=== PATIENT | female | born 1965 | race African-American/Black ===

== ENCOUNTER 2018-04-09 11:54 | Emergency (ER) | payer OTHER ==
[2018-04-09] MEDS ORDERED: Nitroglycerin 0.4 MG TAB (25 Tab Bottle) ONE (12:13)
[2018-04-09 12:45] LABS: ALT (SGPT) 8 U/L (8-55); AST (SGOT) 12 U/L (5-34); Albumin 3.8 g/dL (3.5-5.0); Alkaline Phosphatase 95 U/L (40-150); Anion Gap 9 mmol/L (10-20); BUN (Urea Nitrogen) 9 mg/dL (9.8-20.1); Bilirubin, Total 0.4 mg/dL (0.2-1.2); Calc. Creatinine Clearance 0 mL/min (70-130); Calcium 9.6 mg/dL (7.8-10.44); Carbon Dioxide 25 mmol/L (22-29); Chloride 107 mmol/L (98-107); Estimated GFR-MDRD 74; Globulin 3.1 g/dL (2.4-3.5); Glucose 98 mg/dL (70-105); Protein, Total 6.9 g/dL (6.0-8.3); Sodium 137 mmol/L (136-145)
[2018-04-09 12:50] LABS: CKMB 2.3 ng/mL (0-6.6); Troponin I Less than 0.010 ng/mL (< 0.028)
[2018-04-09 12:51] LABS: Band 2 % (5-11); Hemoglobin 11.1 g/dL (12.0-16.0); Lymphocytes 58 % (21-51); MDiff Complete? YES; Mean Corpuscular HGB CONC 32.8 g/dL (32.0-36.0); Mean Corpuscular Hemoglobin 27.7 pg (27.0-31.0); Mean Corpuscular Volume 84.3 fL (78.0-98.0); Mean Platelet Volume 6.4 fL (7.4-10.4); Monocytes 13 % (0-10); Neutrophil 27 % (42-75); Platelet Count 296 thou/uL (130-400); RBC Distribution Width 15.8 % (11.5-14.5); White Blood Cell (WBC) Count 3.4 thou/uL (4.8-10.8)
--- NOTE | 2018-04-09 13:38 | RAD ---
AP VIEW CHEST: Date: 04/09/18 INDICATION: Chest pain. COMPARISON: None. FINDINGS: No consolidation, pleural effusion, or pneumothorax evident. Heart size is normal appearing. No acute osseous abnormality is evident. IMPRESSION: No acute cardiopulmonary abnormality. POS: [facility]
[2018-04-09 14:51] LABS: Troponin I Less than 0.010 ng/mL (< 0.028)
== END 2018-04-09 15:20 ==
LOC: ERS 11:54
DX: R07.9 Chest pain, unspecified (principal); E11.9 Type 2 diabetes mellitus without complications; I10 Essential (primary) hypertension; F32.9 Major depressive disorder, single episode, unspecified; Z79.899 Other long term (current) drug therapy; Z79.84 Long term (current) use of oral hypoglycemic drugs; Z79.82 Long term (current) use of aspirin
CPT/HCPCS: 36415; 36416; 71045; 80053; 82553; 84484; 85025; 93005

== ENCOUNTER 2018-04-14 10:00 | Inpatient (IN) | payer OTHER ==
[2018-04-14 10:25] LABS: #Lymphocytes 0.3 thou/uL (1.20-3.40); #Monocytes 0.4 thou/uL (0.11-0.59); #Neutrophils 2.5 thou/uL (1.40-6.50); %Eosinophils 1.2 % (0.0-10.0); %Lymphocytes 10.5 % (21.0-51.0); %Monocytes 12.3 % (0.0-10.0); %Neutrophils 76.1 % (42.0-75.0); Hemoglobin 10.1 g/dL (12.0-16.0); Mean Corpuscular HGB CONC 33.2 g/dL (32.0-36.0); Mean Corpuscular Hemoglobin 28.2 pg (27.0-31.0); Mean Corpuscular Volume 85.1 fL (78.0-98.0); Mean Platelet Volume 6.7 fL (7.4-10.4); Platelet Count 201 thou/uL (130-400); Red Blood Cell (RBC) Count 3.59 mill/uL (4.20-5.40); White Blood Cell (WBC) Count 3.2 thou/uL (4.8-10.8)
--- NOTE | 2018-04-14 10:41 | RAD ---
FRONTAL VIEW CHEST: COMPARISON: 04/09/18. INDICATION: Chest pain. FINDINGS: There is a patchy density of the lateral right mid to lower lung zone. Mild bibasilar patchy opaciti es are present. The cardiomediastinal silhouette is accentuated by portable technique. IMPRESSION: Patchy density overlies the lateral right mid to lower lung zone. This is superimposed upon extrinsi c artifact from catheter tubing. Further evaluation with followup 2-view chest would prove useful fo r reassessment. CODE T POS: [facility]
[2018-04-14 10:50] LABS: ALT (SGPT) 10 U/L (8-55); AST (SGOT) 15 U/L (5-34); Albumin 3.6 g/dL (3.5-5.0); Alkaline Phosphatase 81 U/L (40-150); Anion Gap 7 mmol/L (10-20); BUN (Urea Nitrogen) 14 mg/dL (9.8-20.1); Bilirubin, Total 0.5 mg/dL (0.2-1.2); Calc. Creatinine Clearance 0 mL/min (70-130); Calcium 8.4 mg/dL (7.8-10.44); Carbon Dioxide 27 mmol/L (22-29); Chloride 107 mmol/L (98-107); Estimated GFR-MDRD 89; Globulin 2.9 g/dL (2.4-3.5); Glucose 112 mg/dL (70-105); Potassium 3.7 mmol/L (3.5-5.1); Protein, Total 6.5 g/dL (6.0-8.3); Sodium 137 mmol/L (136-145)
[2018-04-14 10:56] LABS: CKMB 1.8 ng/mL (0-6.6); Troponin I Less than 0.010 ng/mL (< 0.028)
[2018-04-14] MEDS ORDERED: Nitroglycerin 0.4 MG TAB (25 Tab Bottle) PO PRN (13:12)
[2018-04-14] MEDS ORDERED: Ondansetron HCl/PF 4 MG/2 ML Vial IVP PRN (13:12)
[2018-04-14] MEDS ORDERED: Acetaminophen 650 MG Suppository PR PRN (13:12)
[2018-04-14] MEDS ORDERED: HYDROcodone/Acetaminophen 5/325 mg Tablet PO PRN (13:12)
[2018-04-14 13:22] VITALS: BMI 29.5
[2018-04-14 13:55] LABS: Troponin I Less than 0.010 ng/mL (< 0.028)
[2018-04-14] MEDS ORDERED: HumaLOG 300 UNITS/3 ML VIAL SC PRN ×2 (15:58)
[2018-04-14] MEDS ORDERED: Dextrose 50% Abboject 50 ML SYRINGE SLOW IVP PRN (15:58)
[2018-04-14] MEDS ORDERED: Dextrose 5% in Water 1,000 ML IV PRN (15:58)
--- NOTE | 2018-04-14 17:15 | HP ---
DATE OF ADMISSION: 04/14/2018 CHIEF COMPLAINT: Chest pain. HISTORY OF PRESENT ILLNESS: This is a 52-year-old -[place] female, who is a resident of [facility] at this time. She has been coming to the hospital regularly with persistent chest pains, last visit was last Tuesday. When she came to the ER, had serial troponins was negative and the patient was a symptomatic. The patient was discharged back to [facility]. Patient returns back today as this morning wh en she woke up, she felt sudden onset of chest pain and the left precordium was radiating to the neck to the both sides and was persistent pain of burning type lasted more than an hour, so she showed to her medical orderly at the [facility], who advised the patient to go to the ER for further thorough evalu ation. The patient presented to the ER, had a EKG was unremarkable. Serial troponins were negative x1 and the patient was having no chest pains currently. She denies having any nausea, no vomiting, n o diarrhea. She does have a strong family history of coronary artery disease. Her mother and the gr andmother dying at the age of 60s. She is a former smoker, otherwise. She denies having any other k nown medical issues except for diabetes, which according to her is well controlled on metformin. PAST MEDICAL HISTORY: 1. Type 2 diabetes mellitus. 2. Hypertension. PAST SURGICAL HISTORY: No major surgeries. SOCIAL HISTORY: The patient is a former smoker, quit smoking more than 2 years ago. No history of a lcohol, no history of illicit drug use. FAMILY HISTORY: Significant for congestive heart failure and premature deaths in the family at age o f 60. Her mother of CT, but was diagnosed with heart failure much younger age. ALLERGIES: No known drug allergies. HOME MEDICATIONS: 1. Omeprazole 20 mg p.o. daily. 2. Amlodipine 10 mg p.o. daily. 3. Aspirin 81 mg p.o. daily. 4. Metformin 500 mg p.o. daily. REVIEW OF SYSTEMS: All twelve systems reviewed with the patient thoroughly and found to be negative at this time. The following complete review of systems was negative, unless otherwise mentioned in t he HPI or below: Constitutional: Weight loss or gain, sense of well-being, ability to conduct usual activities, exerc ise tolerance. Skin/Breast: Rash, itching, changes in hair growth or loss, nail changes, breast lumps, tenderness, swelling, nipple discharge. Eyes: Vision, double vision, tearing, blind spots, pain. ENT/Mouth: Headaches (location, time of onset, duration, precipitating factors), vertigo, lightheade dness, injury. Vision, double vision, tearing, blind spots, pain, nose bleeding, colds, obstruction, discharge, dental difficulties, gingival bleeding, dentures, neck stiffness, pain, tenderness, masses in thyroid or other areas Cardiovascular: Precordial pain, substernal distress, palpitations, syncope, dyspnea on exertion, or thopnea, nocturnal paroxysmal dyspnea, edema, cyanosis, hypertension, heart murmurs, varicosities, ph lebitis, claudication. Respiratory: Pain, shortness of breath, wheezing, stridor, cough, hemoptysis, fever or night sweats. Gastrointestinal: Poor appetite, dysphagia, indigestion, abdominal pain, heartburn, eructation, naus ea, vomiting, hematemesis, jaundice, constipation, or diarrhea, abnormal stools (jasper-colored, tarry, bloody, greasy, foul smelling), flatulence, hemorrhoids, recent changes in bowel habits. Genitourinary: Urgency, frequency, dysuria, nocturia, hematuria, polyuria, oliguria, unusual (or noah nge in) color of urine, stones, hesitancy, change in size of stream, dribbling, acute retention or in continence, libido, potency. Musculoskeletal: Pain, swelling, redness or heat of muscles or joints, limitation, of motion, muscul ar weakness, atrophy, cramps. Neurologic/Psychiatric: Convulsions, paralyses, tremor, incoordination, parasthesias, difficulties w ith memory of speech, sensory or motor disturbances, or muscular coordination (ataxia, tremor), emoti onal problems, anxiety, depression, previous psychiatric care, unusual perceptions, hallucinations. Allergy/Immunologic: Skin rash, anemia, bleeding tendency, polydipsia, polyuria, intolerance to heat or cold. PHYSICAL EXAMINATION: VITAL SIGNS: Blood pressure 105/68, heart rate is 65, respiratory rate is 18, saturation 96%. GENERAL: The patient is moderately built and moderately nourished. She does not appear to be in acu te distress at this time. She is alert and oriented x3. HEENT: Atraumatic, normocephalic. PERRLA. Extraocular muscles are intact. Oral mucosa is pink and moist. CARDIOVASCULAR: S1 and S2 normal. No murmurs, rubs, or gallops. LUNGS: Bilateral air entry was equal. No wheezing, no crackles. ABDOMEN: Soft, nontender, no guarding, no rebound tenderness. Bowel sounds are normal. MUSCULOSKELETAL: No calf tenderness. No pedal edema. No joint tenderness, no joint swelling. SKIN: No cyanosis, no erythema, no rash, no pallor. ROUNDER HAND: Cranial nerve examination II-XII intact. No focal deficits were noted at this time. PSYCHIATRIC: No signs of suicidal ideation. No signs of kelvin was noted. LABORATORY DATA: WBC 3.2, hemoglobin is 10.1, hematocrit is 30.5, platelets are 201. Sodium is 137, potassium 3.7, chloride 107, bicarbonate 27, BUN is 14, creatinine 0.82, AST 15, ALT 10. Troponin 0 .010. Chest x-ray was done in the ER was showing an evidence of cardiomegaly and with patchy density overly ing the lateral right mid to lower lung zones. This is superimposed upon extrinsic artifact from bernard e catheter tubing. ASSESSMENT AND PLAN: 1. Acute coronary syndrome. 2. Gastroesophageal reflux disease. 3. Patchy opacities in the lung. 4. Type 2 diabetes mellitus. 5. Hypertension. PLAN: 1. Plan is to closely monitor this patient at this time with serial troponins, which were actually n egative. Plan to do a nuclear stress test in the morning. I will closely monitor the patient's ches t pains overnight. We will start the patient on aspirin, atorvastatin, and beta lucas. 2. The patient has enlarged heart on chest x-ray. We will do a 2D echo as family has a strong histo ry of congestive heart failure. 3. Plan to do a nuclear stress test in the morning if the troponins were negative. 4. Type 2 diabetes mellitus. We will hold the metformin at this time. We will start the patient on sliding scale insulin at this time for diabetes. 5. Hypertension is well controlled. The patient's blood pressures are pretty low at this time. We will continue to monitor and restart the patient's home medications if uncontrolled. 6. Deep venous thrombosis prophylaxis on Lovenox 40 mg subcu. I spent 75 minutes with this patient.
[2018-04-14] MEDS: Acetaminophen 325 MG TAB PO PRN (18:07)
[2018-04-14 19:42] LABS: CKMB 1.5 ng/mL (0-6.6); Troponin I Less than 0.010 ng/mL (< 0.028)
[2018-04-14] MEDS: Oxybutynin 5 MG TAB PO SCH (20:52)
[2018-04-14] MEDS: Famotidine/PF 20 mg/2ml Vial SLOW IVP SCH (20:52)
[2018-04-14] MEDS: Carvedilol 3.125 MG TAB PO SCH (20:52)
[2018-04-15 05:44] LABS: Anion Gap 10 mmol/L (10-20); BUN (Urea Nitrogen) 13 mg/dL (9.8-20.1); Calc. Creatinine Clearance 116 mL/min (70-130); Calcium 8.5 mg/dL (7.8-10.44); Carbon Dioxide 25 mmol/L (22-29); Cardiac Risk 3.6 (Less than 4.5); Chloride 110 mmol/L (98-107); Cholesterol 146 mg/dl (< 200 Desired); Estimated GFR-MDRD 90; Glucose 98 mg/dL (70-105); HDL Cholesterol 41 mg/dL (>60 Neg Risk); LDL Cholesterol, Calculated 92 mg/dL; Potassium 4.2 mmol/L (3.5-5.1); Sodium 141 mmol/L (136-145); Triglycerides 64 mg/dL (Less than 150)
[2018-04-15 06:06] LABS: MDiff Complete? YES; Mean Corpuscular HGB CONC 32.3 g/dL (32.0-36.0); Mean Corpuscular Hemoglobin 27.7 pg (27.0-31.0); Mean Corpuscular Volume 85.7 fL (78.0-98.0); Mean Platelet Volume 7.1 fL (7.4-10.4); Platelet Count 200 thou/uL (130-400); RBC Distribution Width 16.1 % (11.5-14.5); Red Blood Cell (RBC) Count 3.63 mill/uL (4.20-5.40)
[2018-04-15 06:07] LABS: Band 7 % (5-11); Eosinophils 4 % (0-10); Lymphocytes 45 % (21-51); Monocytes 22 % (0-10); Neutrophil 22 % (42-75); PLT Morphology Comment Appears Adequate; RBC Morphology Normal
[2018-04-15] MEDS ORDERED: Non-Formulary Item 1 EACH (Ferrous Sulfate [Iron] 325 MG) PO SCH (09:00)
[2018-04-15] MEDS: Docusate 100 MG CAP PO SCH (13:16)
[2018-04-15] MEDS: Potassium Chloride 10 MEQ TAB PO SCH (13:17)
[2018-04-15] MEDS: Atorvastatin Calcium 10 MG TAB PO SCH (13:17)
[2018-04-15] MEDS: Aspirin 325 MG TAB PO SCH (13:17)
[2018-04-15] MEDS: Furosemide 40 MG TAB PO SCH (13:17)
[2018-04-15] MEDS: Ferrous Sulfate 325 MG TAB PO SCH (13:17)
[2018-04-15] MEDS: Enoxaparin Sodium 40 MG/0.4 ML SYRINGE SC SCH (13:20)
[2018-04-15] MEDS ORDERED: ADENOSINE 60 MG/20 ML VIAL ONE (13:56)
[2018-04-15] MEDS: Oxybutynin 5 MG TAB PO SCH ×2 (14:00→20:41)
[2018-04-15] MEDS: Famotidine/PF 20 mg/2ml Vial SLOW IVP SCH ×2 (14:00→20:45)
[2018-04-15] MEDS: Carvedilol 3.125 MG TAB PO SCH ×2 (14:00→20:41)
--- NOTE | 2018-04-15 14:15 | NM ---
NUCLEAR MEDICINE MYOCARDIAL PERFUSION SCAN: DATE: 04/15/18. COMPARISON: None. HISTORY: Diabetes, family history of CAD, high blood pressure, and chest pain. TECHNIQUE: SPECT imaging of the left ventricular myocardium obtained during rest and stress following the intrav enous administration of 9.0 and 30.0 mCi Technetium 99m labeled sestamibi. FINDINGS: There is a small defect seen on SPECT imaging at the level of the cardiac apex as well as the distal aspect of the septum which is partially reversible. TID is 0.92. EDV is 118 mL, ESV is 49 mL, and l eft ventricular ejection fraction is calculated at 64%. Left ventricular wall motion appears normal. IMPRESSION: There is a small cardiac perfusion defect at the level of the cardiac apex and the distal septum whic h is partially reversible. POS: [facility]
--- NOTE | 2018-04-15 16:49 | PDOC.PN ---
- Subjective Encounter Start Date: 04/15/18 Encounter Start Time: 14:00 Patient is seen today, alert and oriented. No other concern noted. PT had a positive Stress test with reversib;le defect. pt does have on and off chest pains. - Objective Resuscitation Status: Resuscitation Status FULL:Full Resuscitation MAR Reviewed: Yes Vital Signs & Weight: Vital Signs (12 hours) Temp Pulse Resp BP BP Pulse Ox 04/15/18 11:45 98.0 F 59 L 20 113/62 96 04/15/18 08:17 98.4 F 49 L 16 04/15/18 07:19 98.4 F 49 L 16 114/58 L 94 L 04/15/18 05:24 94 L 04/15/18 05:23 97.6 F 56 L 16 102/52 L 94 L Weight Weight 200 lb I&O: 04/14/18 04/15/18 04/16/18 06:59 06:59 06:59 Intake Total 840 Balance 840 Result Diagrams: 04/15/18 04:19 04/15/18 04:19 Radiology Reviewed by me: Yes Phys Exam - Physical Examination HEENT: PERRLA, moist MMs Neck: no nodes, no JVD Respiratory: no wheezing, no rales Cardiovascular: RRR, no significant murmur Gastrointestinal: soft, non-tender Musculoskeletal: no edema, pulses present Dx/Plan (1) ACS (acute coronary syndrome) Code(s): I24.9 - ACUTE ISCHEMIC HEART DISEASE, UNSPECIFIED Status: Acute Comment: Contoinue Aspirin/ BB, Pt chest xray shpows opasities with no evidence of pneumonia, may do CT to further evalaute. Abnormal Stress test, Consulted [facility]. (2) GERD (gastroesophageal reflux disease) Code(s): K21.9 - GASTRO-ESOPHAGEAL REFLUX DISEASE WITHOUT ESOPHAGITIS Status: Acute Qualifiers: Esophagitis presence: with esophagitis Qualified Code(s): K21.0 - Gastro- esophageal reflux disease with esophagitis Comment: Continue with PPI. (3) HTN (hypertension) Code(s): I10 - ESSENTIAL (PRIMARY) HYPERTENSION Status: Acute Comment: Stbale, continue to monitor. (4) DM type 2 (diabetes mellitus, type 2) Status: Acute Comment: Hold metformin, possible cath tomorrow - Plan cont current plan of care, elementary school social worker, out of bed/ambulate, DVT proph w/ lovenox * . Review of Systems - Review of Systems Eyes: negative: Pain, Vision Change, Conjunctivae Inflammation, Eyelid Inflammation, Redness, Other ENT: negative: Ear Pain, Ear Discharge, Nose Pain, Nose Discharge, Nose Congestion, Mouth Pain, Mouth Swelling, Throat Pain, Throat Swelling, Other Respiratory: negative: Cough, Dry, Shortness of Breath, Hemoptysis, SOB with Excertion, Pleuritic Pain, Sputum, Wheezing Cardiovascular: chest pain. negative: palpitations, orthopnea, paroxysmal nocturnal dyspnea, edema, light headedness, other Gastrointestinal: negative: Nausea, Vomiting, Abdominal Pain, Diarrhea, Constipation, Melena, Hematochezia, Other Genitourinary: negative: Dysuria, Frequency, Incontinence, Hematuria, Retention , Other Musculoskeletal: negative: Neck Pain, Shoulder Pain, Arm Pain, Back Pain, Hand Pain, Leg Pain, Foot Pain, Other - Medications/Allergies Allergies/Adverse Reactions: Allergies Allergy/AdvReac Type Severity Reaction Status Date / Time No Known Allergies Allergy Unverified 04/14/18 13:08 Medications: Current Medications Acetaminophen (Tylenol) 650 mg AR Q4H PRN PRN Reason: Headache/Fever or Pain Acetaminophen (Tylenol) 650 mg PO Q6H PRN PRN Reason: Headache/Fever or Pain Last Admin: 04/14/18 18:07 Dose: 650 mg Hydrocodone Bitart/Acetaminophen (Maxatawny 5/325) 2 tab PO Q4H PRN PRN Reason: Severe Pain (7-10) Aspirin (Aspirin) 325 mg PO DAILY [facility] Last Admin: 04/15/18 13:17 Dose: 325 mg Atorvastatin Calcium (Lipitor) 10 mg PO DAILY [facility] Last Admin: 04/15/18 13:17 Dose: 10 mg Carvedilol (Coreg) 3.125 mg PO BID [facility] Last Admin: 04/15/18 14:00 Dose: Not Given Dextrose/Water (Dextrose 50%) 25 gm SLOW IVP PRN PRN PRN Reason: Hypoglycemia Docusate Sodium (Colace) 100 mg PO DAILY [facility] Last Admin: 04/15/18 13:16 Dose: 100 mg Enoxaparin Sodium (Lovenox) 40 mg SC 0900 [facility] Last Admin: 04/15/18 13:20 Dose: 40 mg Famotidine (Pepcid) 20 mg SLOW IVP Q12HR [facility] Last Admin: 04/15/18 14:00 Dose: Not Given Ferrous Sulfate (Feosol) 325 mg PO DAILY [facility] Last Admin: 04/15/18 13:17 Dose: 325 mg Furosemide (Lasix) 40 mg PO DAILY [facility] Last Admin: 04/15/18 13:17 Dose: 40 mg Glucagon (Glucagon) 1 mg IM PRN PRN PRN Reason: Hypoglycemia Dextrose/Water (D5w) 1,000 mls @ 0 mls/hr IV .Q0M PRN PRN Reason: Hypoglycemia Insulin Human Lispro (Humalog) 0 units SC .MODERATE SLIDING SC PRN PRN Reason: Moderate Correctional Scale Insulin Human Lispro (Humalog) 0 units SC .BEDTIME SLIDING SC PRN PRN Reason: Bedtime Correctional Scale Nitroglycerin (Nitrostat) 0.4 mg PO Q5MIN PRN PRN Reason: Chest Pain Ondansetron HCl (Zofran) 4 mg IVP Q6H PRN PRN Reason: Nausea/Vomiting Oxybutynin Chloride (Ditropan) 5 mg PO BID [facility] Last Admin: 04/15/18 14:00 Dose: Not Given Pantoprazole Sodium (Protonix) 40 mg PO DAILY [facility] Last Admin: 04/15/18 13:17 Dose: 40 mg Potassium Chloride (Klor-Con 10) 10 meq PO DAILY [facility] Last Admin: 04/15/18 13:17 Dose: 10 meq Sodium Chloride (Flush - Normal Saline) 10 ml IVF Q12HR [facility] Last Admin: 04/15/18 14:01 Dose: Not Given Sodium Chloride (Flush - Normal Saline) 10 ml IVF PRN PRN PRN Reason: Saline Flush
--- NOTE | 2018-04-15 19:44 | CON ---
DATE OF CONSULTATION: 04/15/2018 ROOM NUMBER: [id number] PRIMARY CARE PHYSICIAN: Provided information PRIMARY ADOLESCENT MEDICINE SPECIALIST: Dr. Kalie Harris REFERRING DOCTOR: Dr. Peterson. REASON FOR CARDIOLOGY CONSULTATION: Abnormal stress test. HISTORY OF PRESENT ILLNESS: Mr. Osei is a 52-year-old female with a significant history of type 2 diabetes, hypertension, hyperlipidemia, GERD, and chronic anemia. Currently, mahamed goldsmith is a resident of the senior care at this moment. First of all, she came to emergency department last we k, almost one week ago, for heaviness, discomfort in his mid sternal area which radiated to the back and to the left shoulder and to the bilateral neck. At that time, the patient's cardiac enzymes were negative and no EKG change. The patient was discharged the same day. Until this morning, the mahamed goldsmith was doing well without any cardiac complaints, but this morning about 5 minutes, she started havin g heaviness in the chest with similar symptoms one week ago, but worse than last time. The patient a dministered one tablet of nitroglycerin. Within 3-4 minutes, she started feeling dizziness, but not released from chest discomfort with nitroglycerin, so she called guard in the senior care and she was transf erred to emergency department for further evaluation and treatment and she underwent stress test bonita aaron Nuclear stress test today which shows a small deficit at the level of the cardiac apex on the dis adela septum which is partially reversible with EF of 64%. The patient had echocardiogram done today a nd the result is pending at this moment. The patient's cardiac enzyme series is all negative and the patient's 12-lead EKG at the ER showing normal sinus rhythm with no ST segment change or T-wave inve rsion and the patient reports that she was told that she has a cardiac arrhythmia by her primary care doctors. However, she was never referred to self storage manager before. The patient had a chest x-ray tod anuradha showing patchy density overly at the lateral right and mid to lower lung zones. Patient has signi ficant family history of coronary artery disease. PAST MEDICAL HISTORY: 1. Type 2 diabetes. 2. Hypertension. 3. Hyperlipidemia. 4. GERD. 5. Anemia. 6. The patient had a chronic back and hip pain. PAST SURGICAL HISTORY: Tubal ligation, right hip and back fracture in 2009. FAMILY HISTORY: Significant for coronary artery disease and congestive heart failure in the maternal side. The patient's mother and the patient's maternal grandmother due to cardiac related d isease at the age of 62 and both mother and the paternal side grandmother had a history of diabetes, hypertension, congestive heart failure. The patient's brother, he has a medical history of insulin-d ependent diabetes. The patient's father had a history of hypertension. SOCIAL HISTORY: She is single. She had a children. They live well. She is a former smoker, quit 1 -1/2 year ago. She drinks alcohol. She is a social drinker. She had a history of illicit drug abus e, especially heroin, cocaine and marijuana. ALLERGIES: She has no known drug allergies. HOME MEDICATIONS: Atorvastatin 10 mg once a day, amlodipine 10 mg once a day, ferrous sulfate 325 mg once a day, oxybutynin 5 mg twice a day, omeprazole 20 mg once a day, Colace 100 mg once a day, pota ssium chloride 10 mEq once a day, Lasix 40 mg once a day, metformin 500 twice a day, aspirin 81 mg on ce a day. REVIEW OF SYSTEMS: A 12-point review of systems was negative, unless otherwise mentioned in the HPI or below. The patient has a chronic complaint of constipation, but denies hematuria, has blood in th e stool or urine or hemoptysis. PHYSICAL EXAMINATION: VITAL SIGNS: Blood pressure 113/62, heart rate 60 to 70s, temperature 98.0, respiratory rate 20, O2 sat 96% with room air. GENERAL: Patient is alert, oriented x4, not in acute distress. HEAD/EYES: Atraumatic, normocephalic. Extraocular muscle movement is intact. ENT: Oral and nasal mucosa are moist without lesion. NECK: JVP is not palpable. Normal range of motion. LUNGS: Clear to auscultate bilaterally. No wheezing, rhonchi, or crackle noted. CARDIOVASCULAR: Regular rhythm and rate. Normal S1, S2, no S3 or S4. No significant murmur, hives, thrill noted. ABDOMEN: Soft, nontender or mass to palpate. Positive bowel sounds. MUSCULOSKELETAL: Patient able to move all extremities. Denies any claudication. VASCULAR: Carotid pulses are present without bruit or thrill. They have 2+ pulses in the bilateral lower extremities. No edema. SKIN: No cyanosis or ischemia. No rash. Bruise lesion noted. PSYCHIATRIC: No focal deficit. Alert, oriented x4. LABORATORY DATA: WBC 2.0, hemoglobin 10.0, hematocrit 31.1, platelet 200. Sodium 141, potassium of 4.2, BUN 13, creatinine 0.81, AST 15, ALT 10, CK-MB 1.8, 1.5, troponin negative x3. Total cholestero l 146, triglyceride 64, HDL 41 and LDL 92. A 12-lead EKG in the ER shows normal sinus rhythm with he art rate in the 70s with no significant ST segment change or T-wave inversion. ASSESSMENT AND PLAN: 1. Abnormal nuclear stress test with small deficit at the level of the cardiac apex and distal septu m which is . I would like to discuss with Dr. Harris about patient's condition; however, possibil ity patient will undergo cardiac catheterization coming Tuesday due to recurrent chest pain, significa nt medical history of hypertension, hyperlipidemia, illicit drug abuse, especially cocaine and heroin abuse and strong family history of coronary artery disease. 2. Hypertension. The patient's blood pressure is stable at this moment, we would like to continue t o monitor. 3. Diabetes type 2, which is managed by primary care doctor. 4. Gastroesophageal reflux disease. At this moment, the patient's condition is stable. The patient denied any reflux or discomfort due to the throat or chest or stomach with food. 5. Chronic anemia. The patient level is stable at this moment; however, due to the anemia. If michael ent's hemoglobin going down to less than 10, patient cannot have a cardiac catheterization. 6. Low WBC, possible neutropenia. The patient might need further evaluation of vice president network development. At th is moment, the patient does not have any signs or symptoms of infection. Thank you for Cardiology service to participate in the care of this patient. We will follow along wi th the patient's care team and make recommendation as appropriate.
[2018-04-15] MEDS: Acetaminophen 325 MG TAB PO PRN (20:41)
[2018-04-16] MEDS: Simethicone Chewable 80 MG TAB PO PRN (00:59)
[2018-04-16] MEDS: Potassium Chloride 10 MEQ TAB PO SCH (08:24)
[2018-04-16] MEDS: Docusate 100 MG CAP PO SCH (08:24)
[2018-04-16] MEDS: Furosemide 40 MG TAB PO SCH (08:24)
[2018-04-16] MEDS: Oxybutynin 5 MG TAB PO SCH ×2 (08:24→20:29)
[2018-04-16] MEDS: Ferrous Sulfate 325 MG TAB PO SCH (08:24)
[2018-04-16] MEDS: Carvedilol 3.125 MG TAB PO SCH ×2 (08:24→20:28)
[2018-04-16] MEDS: Atorvastatin Calcium 10 MG TAB PO SCH (08:25)
[2018-04-16] MEDS: Enoxaparin Sodium 40 MG/0.4 ML SYRINGE SC SCH (08:25)
[2018-04-16] MEDS: Aspirin 325 MG TAB PO SCH (08:25)
[2018-04-16] MEDS: Famotidine/PF 20 mg/2ml Vial SLOW IVP SCH ×2 (08:26→20:29)
--- NOTE | 2018-04-16 08:49 | PDOC.CTH ---
<Jovanna Reinoso - Last Filed: 04/16/18 08:47> Cardiology Progress Note - Subjective The pt seen and examined. No overnight events. No cardiac complaints. She voiced understanding the procedure and risk of LHC and agreed to proceed. - Objective Vital Signs Temp Pulse Resp BP BP Pulse Ox 04/16/18 07:06 98.4 F 60 20 119/58 L 100 04/16/18 04:14 97.9 F 65 16 109/65 113/56 L 94 L 04/15/18 22:50 59 L 16 139/70 95 Weight 201 lb 3.2 oz 04/15/18 04/16/18 04/17/18 06:59 06:59 06:59 Intake Total 840 800 Balance 840 800 - Physical Examination General/Neuro: alert & oriented x3 Neck: no JVD present Lungs: CTA Heart: RRR Abdomen: soft Extremities: other: (No edema) - Telemetry Telemetry Rhythm: SR - Labs Result Diagrams: 04/15/18 04:19 04/15/18 04:19 Troponin/CKMB CK-MB (CK-2) 1.5 ng/mL (0-6.6) 04/14/18 19:08 Troponin I Less than 0.010 ng/mL (< 0.028) 04/14/18 19:08 - Assessment/Plan 1. Abnormal stress test - No overnight cardiac events. On Bblocker, ASA, Statin and Lovenox. Cardiac cath on 04/16/18 2. HTN - stable with current med. 3. DM type 2 - managed by PCP 4. Hyperlipidemia - on Statin 5. GERD - stable MAR reviewed * Plan for Cardiac cath on 04/16/[address] Harris. Review of Systems - Review of Systems Constitutional: reports: no symptoms reported EENTM: reports: no symptoms reported Respiratory: reports: no symptoms reported Cardiac (ROS): reports: no symptoms reported ABD/GI: reports: no symptoms reported : reports: no symptoms reported Musculoskeletal: reports: no symptoms reported <Alexis Harris - Last Filed: 04/17/18 11:21> Cardiology Progress Note - Objective Vital Signs Temp Pulse Resp BP BP Pulse Ox 04/17/18 07:25 98.5 F 69 20 93 L 04/17/18 07:05 98.5 F 69 20 133/73 93 L 04/17/18 03:16 98.2 F 56 L 16 117/60 93 L 04/16/18 23:33 98.0 F 62 18 117/59 L 95 Weight 201 lb 4.8 oz 04/16/18 04/17/18 04/18/18 06:59 06:59 06:59 Intake Total 800 770 Balance 800 770 - Labs Result Diagrams: 04/15/18 04:19 04/15/18 04:19 Troponin/CKMB CK-MB (CK-2) 1.5 ng/mL (0-6.6) 04/14/18 19:08 Troponin I Less than 0.010 ng/mL (< 0.028) 04/14/18 19:08 - Assessment/Plan pt. seen and eval. by me. I agree with the A/P by the BAG SHAKER.Plan for cath in AM.
--- NOTE | 2018-04-16 10:38 | PDOC.PN ---
- Subjective Encounter Start Date: 04/16/18 Encounter Start Time: 07:50 -: old records requested/rev Patient seen and examined. No new complaints. No overnight events - Objective Resuscitation Status: Resuscitation Status FULL:Full Resuscitation MAR Reviewed: Yes Vital Signs & Weight: Vital Signs (12 hours) Temp Pulse Resp BP BP Pulse Ox 04/16/18 08:00 98.4 F 60 20 04/16/18 07:06 98.4 F 60 20 119/58 L 100 04/16/18 04:14 97.9 F 65 16 109/65 113/56 L 94 L 04/15/18 22:50 59 L 16 139/70 95 Weight Weight 201 lb 3.2 oz I&O: 04/15/18 04/16/18 04/17/18 06:59 06:59 06:59 Intake Total 840 800 240 Balance 840 800 240 Result Diagrams: 04/15/18 04:19 04/15/18 04:19 Additional Labs: Accuchecks 04/16/18 04:18 POC Glucose 109 Radiology Reviewed by me: Yes EKG Reviewed by me: Yes Phys Exam - Physical Examination Constitutional: NAD HEENT: PERRLA, moist MMs, sclera anicteric Neck: no JVD, supple Respiratory: no wheezing, no rales, no rhonchi Cardiovascular: RRR, no significant murmur, no rub Gastrointestinal: soft, non-tender, no distention, positive bowel sounds Musculoskeletal: no edema, pulses present Neurological: non-focal, normal sensation, moves all 4 limbs Psychiatric: normal affect, A&O x 3 Skin: no rash, normal turgor Dx/Plan (1) Abnormal stress test Status: Acute (2) Recurrent chest pain Code(s): R07.9 - CHEST PAIN, UNSPECIFIED Status: Acute (3) Anemia, normocytic normochromic Code(s): D64.9 - ANEMIA, UNSPECIFIED Status: Chronic (4) Chronic stage c diastolic heart failure Code(s): I50.32 - CHRONIC DIASTOLIC (CONGESTIVE) HEART FAILURE Status: Chronic (5) DM type 2 (diabetes mellitus, type 2) Status: Chronic Comment: Hold metformin, possible cath tomorrow (6) Dyslipidemia Code(s): E78.5 - HYPERLIPIDEMIA, UNSPECIFIED Status: Chronic (7) GERD (gastroesophageal reflux disease) Code(s): K21.9 - GASTRO-ESOPHAGEAL REFLUX DISEASE WITHOUT ESOPHAGITIS Status: Chronic Qualifiers: Esophagitis presence: with esophagitis Qualified Code(s): K21.0 - Gastro- esophageal reflux disease with esophagitis Comment: Continue with PPI. (8) HTN (hypertension) Code(s): I10 - ESSENTIAL (PRIMARY) HYPERTENSION Status: Chronic Comment: Stbale, continue to monitor. (9) Moderate aortic regurgitation Code(s): I35.1 - NONRHEUMATIC AORTIC (VALVE) INSUFFICIENCY Status: Chronic - Plan cont current plan of care * medication reviewed as below * symptomatic treatment * cardiac cath tomorrow. Review of Systems - Review of Systems Eyes: negative: Pain, Vision Change, Conjunctivae Inflammation, Eyelid Inflammation, Redness, Other ENT: negative: Ear Pain, Ear Discharge, Nose Pain, Nose Discharge, Nose Congestion, Mouth Pain, Mouth Swelling, Throat Pain, Throat Swelling, Other Respiratory: negative: Cough, Dry, Shortness of Breath, Hemoptysis, SOB with Excertion, Pleuritic Pain, Sputum, Wheezing Cardiovascular: negative: chest pain, palpitations, orthopnea, paroxysmal nocturnal dyspnea, edema, light headedness, other Gastrointestinal: negative: Nausea, Vomiting, Abdominal Pain, Diarrhea, Constipation, Melena, Hematochezia, Other Genitourinary: negative: Dysuria, Frequency, Incontinence, Hematuria, Retention , Other Musculoskeletal: negative: Neck Pain, Shoulder Pain, Arm Pain, Back Pain, Hand Pain, Leg Pain, Foot Pain, Other Skin: negative: Rash, Lesions, Balta, Bruising, Other - Medications/Allergies Allergies/Adverse Reactions: Allergies Allergy/AdvReac Type Severity Reaction Status Date / Time No Known Allergies Allergy Unverified 04/14/18 13:08 Medications: Current Medications Acetaminophen (Tylenol) 650 mg [place] Q4H PRN PRN Reason: Headache/Fever or Pain Acetaminophen (Tylenol) 650 mg PO Q6H PRN PRN Reason: Headache/Fever or Pain Last Admin: 04/15/18 20:41 Dose: 650 mg Hydrocodone Bitart/Acetaminophen ([place] 5/325) 2 tab PO Q4H PRN PRN Reason: Severe Pain (7-10) Last Admin: 04/15/18 23:04 Dose: 2 tab Aspirin (Aspirin) 325 mg PO DAILY [facility] Last Admin: 04/16/18 08:25 Dose: 325 mg Atorvastatin Calcium (Lipitor) 10 mg PO DAILY [facility] Last Admin: 04/16/18 08:25 Dose: 10 mg Carvedilol (Coreg) 3.125 mg PO BID [facility] Last Admin: 04/16/18 08:24 Dose: 3.125 mg Dextrose/Water (Dextrose 50%) 25 gm SLOW IVP PRN PRN PRN Reason: Hypoglycemia Docusate Sodium (Colace) 100 mg PO DAILY [facility] Last Admin: 04/16/18 08:24 Dose: 100 mg Enoxaparin Sodium (Lovenox) 40 mg SC 0900 [facility] Last Admin: 04/16/18 08:25 Dose: 40 mg Famotidine (Pepcid) 20 mg SLOW IVP Q12HR [facility] Last Admin: 04/16/18 08:26 Dose: 20 mg Ferrous Sulfate (Feosol) 325 mg PO DAILY [facility] Last Admin: 04/16/18 08:24 Dose: 325 mg Furosemide (Lasix) 40 mg PO DAILY [facility] Last Admin: 04/16/18 08:24 Dose: 40 mg Glucagon (Glucagon) 1 mg IM PRN PRN PRN Reason: Hypoglycemia Dextrose/Water (D5w) 1,000 mls @ 0 mls/hr IV .Q0M PRN PRN Reason: Hypoglycemia Insulin Human Lispro (Humalog) 0 units SC .MODERATE SLIDING SC PRN PRN Reason: Moderate Correctional Scale Insulin Human Lispro (Humalog) 0 units SC .BEDTIME SLIDING SC PRN PRN Reason: Bedtime Correctional Scale Nitroglycerin (Nitrostat) 0.4 mg PO Q5MIN PRN PRN Reason: Chest Pain Last Admin: 04/15/18 17:31 Dose: 0.4 mg Ondansetron HCl (Zofran) 4 mg IVP Q6H PRN PRN Reason: Nausea/Vomiting Oxybutynin Chloride (Ditropan) 5 mg PO BID [facility] Last Admin: 04/16/18 08:24 Dose: 5 mg Pantoprazole Sodium (Protonix) 40 mg PO DAILY [facility] Last Admin: 04/16/18 08:24 Dose: 40 mg Potassium Chloride (Klor-Con 10) 10 meq PO DAILY [facility] Last Admin: 04/16/18 08:24 Dose: 10 meq Simethicone (Mylicon Chewable) 80 mg PO DAILYPRN PRN PRN Reason: GAS/INDIGESTION Last Admin: 04/16/18 00:59 Dose: 80 mg Sodium Chloride (Flush - Normal Saline) 10 ml IVF Q12HR [facility] Last Admin: 04/16/18 08:27 Dose: 10 ml Sodium Chloride (Flush - Normal Saline) 10 ml IVF PRN PRN PRN Reason: Saline Flush
[2018-04-16] MEDS ORDERED: Communication Order-Pharmacy FS SCH (20:45)
[2018-04-17] MEDS: Oxybutynin 5 MG TAB PO SCH ×2 (05:11→20:38)
[2018-04-17] MEDS: Docusate 100 MG CAP PO SCH (05:11)
[2018-04-17] MEDS: Ferrous Sulfate 325 MG TAB PO SCH (05:11)
[2018-04-17] MEDS: Atorvastatin Calcium 10 MG TAB PO SCH (05:11)
[2018-04-17] MEDS: Carvedilol 3.125 MG TAB PO SCH ×2 (05:12→20:38)
[2018-04-17] MEDS: Famotidine/PF 20 mg/2ml Vial SLOW IVP SCH ×2 (05:12→20:38)
[2018-04-17] MEDS: Aspirin 325 MG TAB PO SCH (05:12)
--- NOTE | 2018-04-17 07:06 | ADD-CON ---
ADDENDUM: DATE OF CONSULTATION: 04/15/2018 DATE OF ADMISSION: 04/14/2018 INDICATION FOR CONSULTATION: A 52-year-old female with an abnormal stress test and history of chest pain and multiple hospital visits for chest pain, as well as hypertension, type 2 diabetes. This ivette y unfortunate 52-year-old female who is incarcerated at this time has been seen in the hospital on ro utine visits due to continued bouts of chest discomfort. Her enzymes have remained negative, but tod ay she had a stress test which did show some evidence of distal septal and apical reversible ischemia . This is not a very large area, but certainly may be what the etiology of her chest discomfort is a nd she certainly may have underlying coronary artery disease. This will be best to proceed with a ca rdiac catheterization on this lady to determine the true coronary anatomy and if she does have some c oronary artery disease and this can be addressed; if not, then we can dismiss these multiple admissio ns to the emergency room and observation. For her past medical history, social history, review of systems, medications, allergies, please refer the notes dictated by the nurse practitioner. PHYSICAL EXAMINATION: GENERAL: Reveals a well-developed, well-nourished female who is in no acute distress at this time. She did say she had some chest pain earlier, but she did not inform the nurses, there were no signifi cant changes otherwise noted. The pain did not last too long and then she did tell the nurse and she was given some nitroglycerin and the pain then resolved. VITAL SIGNS: Blood pressure 116/56. She is afebrile, heart rate 67 and shows a sinus rhythm, respir atory rate 14, O2 saturations 95%. HEENT: Unremarkable. CHEST: Clear to auscultation. There are no rales, rhonchi or wheezing. CARDIOVASCULAR: Exam reveals a regular rate and rhythm. She has a normal S1, S2. There is no S3, S 4. I did not hear any significant murmurs, heaves, thrills, bruits or rubs. ABDOMEN: Shows obesity with positive bowel sounds. No organomegaly, masses are noted. She has a we ll-healed surgical incision on the back area, a long incision after she apparently had a fall and had a fractured back. EXTREMITIES: Show no clubbing, cyanosis or edema. Pulses are present. NEUROLOGIC: She appears to be fully intact. SKIN: Warm and dry. Her cardiac enzymes are negative. There is no indication that she has suffered a myocardial infarcti on and blood sugar is also relatively normal at 98. Her creatinine is normal at 0.8. Her LDL level is also 92, which should be slightly lower since she is a diabetic. The plan would be: 1. Abnormal stress test with continued bouts of chest discomfort. We will plan for a cardiac cathet erization on Tuesday as a more definitive evaluation, so the patient hopefully will then be better jane luated and she may not need to come to the emergency room is often and be admitted to rule out eviden ce of coronary artery disease. Should she have issues as noted above, then she will need to undergo angioplasty, stent placement or further intervention as indicated by the findings at the cardiac cath eterization. I have explained the procedure and the risks to her to include bleeding, infection, pos sibly a myocardial infarction, CVA, renal insufficiency, allergic contrast reaction, and the possibil ity of . She understands and agrees to proceed. We will plan for cardiac catheterization eithe r Tuesday or Tuesday of next week. 2. Hypertension. She is under good control at this time. We will continue her same medications. 3. Hypercholesterolemia. As noted, I would increase the medications to have an LDL level of 70 sinc e she is diabetic. 4. History of diabetes. This was dealt with by the primary care service. 5. History of tobacco abuse in the past. She has not smoked in 5 years, but does smoke a pack a day for a long time.
[2018-04-17] MEDS ORDERED: Heparin 10,000 UNITS/1 ML VIAL ONE (08:57)
[2018-04-17] MEDS ORDERED: Verapamil 5 MG/2 ML VIAL ONE (08:57)
[2018-04-17] MEDS ORDERED: Nitroglycerin 100MG/250ML BOT 250 ML ONE (08:58)
[2018-04-17] MEDS ORDERED: Lidocaine 1% (PF) 30 ML VIAL ONE (08:58)
[2018-04-17] MEDS ORDERED: Midazolam HCl 2 mg/2 ml Vial ONE (09:30)
[2018-04-17] MEDS ORDERED: Sodium Chloride 0.9% 200 ML IV SCH (10:24)
[2018-04-17] MEDS ORDERED: Acetaminophen/Codeine 30-300mg Tablet PO PRN (10:24)
[2018-04-17] MEDS ORDERED: traMADol HCl 50 MG TAB PO PRN (10:24)
[2018-04-17] MEDS ORDERED: Nitroglycerin 0.4 MG TAB (25 Tab Bottle) SL PRN (10:24)
--- NOTE | 2018-04-17 11:47 | PDOC.PN ---
- Subjective Encounter Start Date: 04/17/18 Encounter Start Time: 07:50 Patient seen and examined. No new complaints. No overnight events - Objective Resuscitation Status: Resuscitation Status FULL:Full Resuscitation MAR Reviewed: Yes Vital Signs & Weight: Vital Signs (12 hours) Temp Pulse Resp BP Pulse Ox 04/17/18 07:25 98.5 F 69 20 93 L 04/17/18 07:05 98.5 F 69 20 133/73 93 L 04/17/18 03:16 98.2 F 56 L 16 117/60 93 L Weight Weight 201 lb 4.8 oz I&O: 04/16/18 04/17/18 04/18/18 06:59 06:59 06:59 Intake Total 800 770 Balance 800 770 Result Diagrams: 04/15/18 04:19 04/15/18 04:19 Additional Labs: Accuchecks 04/17/18 04/17/18 04/16/18 11:21 03:26 21:01 POC Glucose 90 102 133 H 04/16/18 04/16/18 04/15/18 16:36 11:27 21:35 POC Glucose 134 H 84 109 Phys Exam - Physical Examination Constitutional: NAD HEENT: PERRLA, moist MMs, sclera anicteric Neck: no JVD, supple Respiratory: no wheezing, no rales, no rhonchi Cardiovascular: RRR, no significant murmur, no rub Gastrointestinal: soft, non-tender, no distention, positive bowel sounds Musculoskeletal: no edema, pulses present Neurological: non-focal, normal sensation, moves all 4 limbs Lymphatic: no nodes Psychiatric: normal affect, A&O x 3 Skin: no rash, normal turgor Dx/Plan (1) Abnormal stress test Status: Acute (2) Recurrent chest pain Code(s): R07.9 - CHEST PAIN, UNSPECIFIED Status: Acute (3) Anemia, normocytic normochromic Code(s): D64.9 - ANEMIA, UNSPECIFIED Status: Chronic (4) Chronic stage c diastolic heart failure Code(s): I50.32 - CHRONIC DIASTOLIC (CONGESTIVE) HEART FAILURE Status: Chronic (5) DM type 2 (diabetes mellitus, type 2) Status: Chronic Comment: Hold metformin, possible cath tomorrow (6) Dyslipidemia Code(s): E78.5 - HYPERLIPIDEMIA, UNSPECIFIED Status: Chronic (7) GERD (gastroesophageal reflux disease) Code(s): K21.9 - GASTRO-ESOPHAGEAL REFLUX DISEASE WITHOUT ESOPHAGITIS Status: Chronic Qualifiers: Esophagitis presence: with esophagitis Qualified Code(s): K21.0 - Gastro- esophageal reflux disease with esophagitis Comment: Continue with PPI. (8) HTN (hypertension) Code(s): I10 - ESSENTIAL (PRIMARY) HYPERTENSION Status: Chronic Comment: Stbale, continue to monitor. (9) Moderate aortic regurgitation Code(s): I35.1 - NONRHEUMATIC AORTIC (VALVE) INSUFFICIENCY Status: Chronic - Plan cont current plan of care * medication reviewed as below * symptomatic treatment * cardiac cath is normal * may be related with gerd. * check fobt, if positive then will consult GI Review of Systems - Review of Systems Eyes: negative: Pain, Vision Change, Conjunctivae Inflammation, Eyelid Inflammation, Redness, Other ENT: negative: Ear Pain, Ear Discharge, Nose Pain, Nose Discharge, Nose Congestion, Mouth Pain, Mouth Swelling, Throat Pain, Throat Swelling, Other Respiratory: negative: Cough, Dry, Shortness of Breath, Hemoptysis, SOB with Excertion, Pleuritic Pain, Sputum, Wheezing Cardiovascular: negative: chest pain, palpitations, orthopnea, paroxysmal nocturnal dyspnea, edema, light headedness, other Gastrointestinal: negative: Nausea, Vomiting, Abdominal Pain, Diarrhea, Constipation, Melena, Hematochezia, Other Genitourinary: negative: Dysuria, Frequency, Incontinence, Hematuria, Retention , Other Musculoskeletal: negative: Neck Pain, Shoulder Pain, Arm Pain, Back Pain, Hand Pain, Leg Pain, Foot Pain, Other - Medications/Allergies Allergies/Adverse Reactions: Allergies Allergy/AdvReac Type Severity Reaction Status Date / Time No Known Allergies Allergy Unverified 04/14/18 13:08 Medications: Current Medications Acetaminophen (Tylenol) 650 mg [place] Q4H PRN PRN Reason: Headache/Fever or Pain Acetaminophen (Tylenol) 650 mg PO Q6H PRN PRN Reason: Headache/Fever or Pain Last Admin: 04/15/18 20:41 Dose: 650 mg Acetaminophen/Codeine Phosphate (Tylenol #3) 1 tab PO Q4H PRN PRN Reason: Mild Pain (1-3) Acetaminophen/Codeine Phosphate (Tylenol #3) 2 tab PO Q4H PRN PRN Reason: Moderate Pain (4-6) Hydrocodone Bitart/Acetaminophen ([place] 5/325) 2 tab PO Q4H PRN PRN Reason: Severe Pain (7-10) Last Admin: 04/15/18 23:04 Dose: 2 tab Aspirin (Aspirin) 325 mg PO DAILY [facility] Last Admin: 04/17/18 05:12 Dose: 325 mg Atorvastatin Calcium (Lipitor) 10 mg PO DAILY [facility] Last Admin: 04/17/18 05:11 Dose: 10 mg Carvedilol (Coreg) 3.125 mg PO BID [facility] Last Admin: 04/17/18 05:12 Dose: 3.125 mg Dextrose/Water (Dextrose 50%) 25 gm SLOW IVP PRN PRN PRN Reason: Hypoglycemia Docusate Sodium (Colace) 100 mg PO DAILY [facility] Last Admin: 04/17/18 05:11 Dose: 100 mg Famotidine (Pepcid) 20 mg SLOW IVP Q12HR [facility] Last Admin: 04/17/18 05:12 Dose: 20 mg Ferrous Sulfate (Feosol) 325 mg PO DAILY [facility] Last Admin: 04/17/18 05:11 Dose: 325 mg Furosemide (Lasix) 40 mg PO DAILY [facility] Last Admin: 04/16/18 08:24 Dose: 40 mg Glucagon (Glucagon) 1 mg IM PRN PRN PRN Reason: Hypoglycemia Dextrose/Water (D5w) 1,000 mls @ 0 mls/hr IV .Q0M PRN PRN Reason: Hypoglycemia Insulin Human Lispro (Humalog) 0 units SC .MODERATE SLIDING SC PRN PRN Reason: Moderate Correctional Scale Insulin Human Lispro (Humalog) 0 units SC .BEDTIME SLIDING SC PRN PRN Reason: Bedtime Correctional Scale Nitroglycerin (Nitrostat) 0.4 mg PO Q5MIN PRN PRN Reason: Chest Pain Last Admin: 04/15/18 17:31 Dose: 0.4 mg Nitroglycerin (Nitrostat) 0.4 mg SL Q5MIN PRN PRN Reason: Chest Pain Ondansetron HCl (Zofran) 4 mg IVP Q6H PRN PRN Reason: Nausea/Vomiting Oxybutynin Chloride (Ditropan) 5 mg PO BID [facility] Last Admin: 04/17/18 05:11 Dose: 5 mg Pantoprazole Sodium (Protonix) 40 mg PO DAILY [facility] Last Admin: 04/17/18 05:12 Dose: 40 mg Potassium Chloride (Klor-Con 10) 10 meq PO DAILY [facility] Last Admin: 04/16/18 08:24 Dose: 10 meq Simethicone (Mylicon Chewable) 80 mg PO DAILYPRN PRN PRN Reason: GAS/INDIGESTION Last Admin: 04/16/18 00:59 Dose: 80 mg Sodium Chloride (Flush - Normal Saline) 10 ml IVF Q12HR [facility] Last Admin: 04/17/18 05:13 Dose: 10 ml Sodium Chloride (Flush - Normal Saline) 10 ml IVF PRN PRN PRN Reason: Saline Flush Tramadol HCl (Ultram) 50 mg PO Q6H PRN PRN Reason: Moderate Pain (4-6)
[2018-04-17] MEDS: Potassium Chloride 10 MEQ TAB PO SCH (11:59)
[2018-04-17] MEDS: Furosemide 40 MG TAB PO SCH (11:59)
[2018-04-17] MEDS: Acetaminophen/Codeine 30-300mg Tablet PO PRN ×2 (12:59→20:37)
[2018-04-17] MEDS ORDERED: Iopamidol 370 76% 100 ML VIAL ONE (15:29)
--- NOTE | 2018-04-17 16:59 | EKG ---
Test Reason : STAT Blood Pressure : / mmHG Vent. Rate : 056 BPM Atrial Rate : 056 BPM P-R Int : 158 ms QRS Dur : 088 ms QT Int : 422 ms P-R-T Axes : 021 016 046 degrees QTc Int : 407 ms Sinus bradycardia O/W OK Confirmed by DR. Baldomero HOUSTON ([id number]) on 04/17/2018 4:59:15 PM Referred By: MIKE Confirmed By:DR. Baldomero HOUSTON
[2018-04-17] MEDS: Simethicone Chewable 80 MG TAB PO PRN (20:38)
[2018-04-18] MEDS: Aspirin 325 MG TAB PO SCH (11:11)
[2018-04-18] MEDS: Atorvastatin Calcium 10 MG TAB PO SCH (11:11)
[2018-04-18] MEDS: Oxybutynin 5 MG TAB PO SCH (11:12)
[2018-04-18] MEDS: Ferrous Sulfate 325 MG TAB PO SCH (11:12)
[2018-04-18] MEDS: Famotidine/PF 20 mg/2ml Vial SLOW IVP SCH (11:12)
[2018-04-18] MEDS: Potassium Chloride 10 MEQ TAB PO SCH (11:12)
[2018-04-18] MEDS: Furosemide 40 MG TAB PO SCH (11:12)
[2018-04-18] MEDS: Carvedilol 3.125 MG TAB PO SCH (11:12)
[2018-04-18] MEDS: Docusate 100 MG CAP PO SCH (11:12)
--- NOTE | 2018-04-18 11:22 | CON ---
DATE OF CONSULTATION: 04/17/2018 REFERRING PHYSICIAN: Tremayne Cole M.D. REASON FOR CONSULTATION: 1. Chest pain, negative cardiac workup. 2. History of chronic acid reflux, on omeprazole. HISTORY OF PRESENT ILLNESS: Ms. 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 Her hometown is [place]. Apparently, [place] 3 [place] and she has been transferred to [place] 3 months ago. The patient has noted chronic acid reflux over the years. She was taking Zantac before and because of persistent symptoms, she was changed to omeprazole. She tells me when on omeprazole, her reflux symptoms are controlled. However, when she eats some oranges or drink orange juice or eats tomato-containing products, she started having worsen ing acid reflux. The patient also had some fullness or globus sensation in her throat. The patient was hospitalized because of chest pain over the precordial area. She was seen by Dr. Chris Harris and c ardiology workup is negative. The patient is actually feeling better now. I was asked to see the pa tient by Dr. Tremayne Cole for possible EGD because of the recurrent chest pain and negative cardiac workup. Her pain is actually over the precordial area and left lower rib margin. Her pain actually is almost resolved at the present time. However, she says she has some fullness in the throat and so me burning in the throat. There is no history of nausea or vomiting. Her bowel movements are regula r. There is no history of hematochezia or any melena. She has no other relevant history. ALLERGIES: None. SOCIAL HISTORY: She is a former smoker. She does not drink alcohol. No illicit drug abuse. MEDICAL ILLNESSES: 1. Type 2 diabetes mellitus. 2. Hypertension. MEDICATIONS: Medication list was reviewed, which include omeprazole, amlodipine, aspirin, and metfor min. FAMILY HISTORY: Her mother had heart failure and premature deaths in family at age 60. Her mother h ad heart disease and also had breast cancer and cervical cancer. Grandmother had heart failure. REVIEW OF SYSTEMS: Ten-point system review: RADIOLOGY NURSE: No history of TIA, no syncope, no chronic headach e, no dizziness. Respiratory system: No history of chronic cough, hemoptysis, dyspnea. Cardiovascu lar system: Chest pain, negative cardiac workup. No palpitation, no exertional dyspnea, orthopnea, or PND. Gastrointestinal: As in history of present illness. Genitourinary: No dysuria, hematuria, or frequency in urination. Musculoskeletal: Not known. Endocrine: Not known. Hematology: Not known. PHYSICAL EXAMINATION: GENERAL: The patient is awake, alert, and communicative. She is in no distress. VITAL SIGNS: Her pulse is 65, blood pressure is 110/70. HEENT: Conjunctivae clear. NECK: Supple. No adenitis or thyromegaly noted. CARDIOVASCULAR SYSTEM: First and second heart sounds normal. LUNGS: Clear to auscultation. ABDOMEN: Abdomen is soft. Abdomen is mildly tender over the epigastric area and also left upper [place]ia drant. There is no rebound or guarding. No organomegaly or masses. Bowel sounds are normal. EXTREMITIES: Reveal no edema. LABORATORY DATA: CBC: WBC 2000 today, which was 3.2 on admission; hemoglobin 10; hematocrit 31.1; M CV 82.7, platelet count 200,000; polymorphs 22; bands 7; lymphocytes 45; monocytes 22. Serum chemist instrumentation brandin: Sodium 141, potassium 4.2, chloride 110, bicarbonate 25, BUN is 13, creatinine 0.81, glucose 9 8, calcium 8.5, triglyceride 64, cholesterol 146, calcium 8.5. Her cardiac workup is negative. CLINICAL IMPRESSION: 1. A 52-year-old black female with chest pain, and she has history of chronic acid reflux. The card iac workup is negative. She has had chronic acid reflux and has been on Zantac before, now she is on omeprazole. She has off and on. 2. Anemia, normocytic. 3. Hypertension. 4. Diabetes mellitus. I did talk to Ms. Osei about having EGD. She is agreeable. I will plan EGD tomorrow and make fur ther recommendation.
--- NOTE | 2018-04-18 11:23 | OP ---
DATE OF SURGERY: 04/18/2018 SURGEON: Jacqueline Davidson M.D. OPERATIVE PROCEDURE: Esophagogastroduodenoscopy and biopsy. PREOPERATIVE DIAGNOSES: A 52-year-old female with atypical chest pain, history of c hronic acid reflux also complains of globus sensation and a question of dysphagia. The patient is un dergoing an EGD. POSTOPERATIVE DIAGNOSES: 1. No esophageal narrowing seen. 2. Normal esophageal mucosa. 3. Antral gastritis with small ulcer in the antrum. 4. Normal duodenum. PROCEDURE NOTE: The patient was placed on her left lateral position and was given sedation by Anesth esia Department. A Pentax video gastroscope under direct vision passed down the oropharynx, past the GE junction, into the stomach and subsequently into the descending duodenum. The vocal cords appear ed healthy. The esophageal mucosa appeared normal. There is no esophagitis seen. Also, the esophag eal lumen was wide open. The GE junction, no pathology seen. Retroflexion failed to show presence o f esophagitis. The gastric body, no pathology seen. The gastric antrum shows patchy has mucosal irma ma, erythema, and also small ulceration. Biopsy obtained of the gastric antrum and gastric body. Th e duodenum including the bulb and descending part, no pathology seen. The stomach was decompressed a nd the scope removed. RECOMMENDATIONS: 1. Continue PPI either Protonix 40 once a day or omeprazole 40 once a day. 2. From a GI standpoint, the patient can discharge home today.
--- NOTE | 2018-04-18 11:59 | DIS ---
PRIMARY CARE PHYSICIAN: [facility] call admission. DATE OF ADMISSION: 04/14/2018 DATE OF DISCHARGE: 04/18/2018 DISCHARGE DISPOSITION: Alf system. PRIMARY DISCHARGE DIAGNOSES: 1. Recurrent chest pain. 2. Abnormal stress test. 3. Negative cardiac catheterization. 4. Mild gastritis. SECONDARY DISCHARGE DIAGNOSES: Normocytic normochromic anemia, chronic stage C diastolic heart failu re, diabetes type 2, dyslipidemia, gastroesophageal reflux disease, moderate aortic regurgitation, hy pertension. PRIMARY PROCEDURE/OPERATION: EGD was done by Dr. Davidson. RADIOLOGICAL INVESTIGATION: Chest x-ray normal. Echocardiography showed moderate aortic regurgitati on. Stress test was positive for reversible ischemia. SIGNIFICANT LABORATORY DATA: WBC 2.0, hemoglobin 10.0, platelet 200. Sodium 141, potassium 4.2, cre atinine 0.81, LDL 92. Cardiac enzymes negative. Stool for guaiac negative. DISCHARGE MEDICATIONS: Protonix 40 mg p.o. daily, Norvasc 10 mg daily, aspirin 81 mg p.o. daily, Lip itor 10 mg p.o. daily, Colace 100 mg p.o. daily, iron 325 mg p.o. daily, Lasix 40 mg p.o. daily, metf ormin 500 mg p.o. b.i.d., Ditropan 5 mg p.o. b.i.d., potassium chloride 10 mEq p.o. daily. CONTRAINDICATIONS: None. CODE STATUS: FULL CODE. INPATIENT CONSULTANTS: Dr. Harris was consulted for abnormal stress test. Dr. Davidson was consulted for EGD. TEST RESULTS PENDING ON DISCHARGE: None. ALLERGIES: No known drug allergy. DISCHARGE PLAN: Post hospital, the patient will follow up with primary care physician in 1 week. HOSPITAL COURSE: A 52-year-old female who was admitted by Dr. Shaji Peterson. Please see his H&P for f urther detail. The patient was admitted for chest pain. She had stress test which was abnormal. In itially, she was in observation status, but after abnormal stress test we changed to inpatient status as she was requiring cardiac catheterization and over weekend. Echocardiography showed moderate aor tic regurgitation. Cardiac catheterization came back negative. We consulted GI to rule out any xochitl rointestinal etiology for her recurrent chest pain. GI did upper endoscopy and recommended PPI therapy. PPI was prescribed. The patient will continue all her other previous medication. The patient is seen and examined at bedside today. Her vitals are normal. Her physical examination is normal. New medication prescription given to her. Dietary instruction given. Healthy lifestyle measures discussed with the patient. This patient needs some device to ____ socks and that is why that was given by the occupational thera py. She can use at the skilled nursing system. The patient is medically stable for discharge today.
[2018-04-18 13:27] VITALS: BP 150/87; TEMP 97.8
== END 2018-04-18 13:17 | DRG 287 ==
LOC: ERS 10:00 → OBSVTOIN 11:21 → 2SW 11:21 → ERS 12:20 → 2SW 04-17 21:57
PROVIDERS: ADMIT Family Medicine; ATTEND Family Medicine
PROC: 4A023N7 Measurement of Cardiac Sampling and Pressure, Left Heart, Percutaneous Approach (ICD-10-PCS; principal; 2018-04-17)
PROC: B2111ZZ Fluoroscopy of Multiple Coronary Arteries using Low Osmolar Contrast (ICD-10-PCS; 2018-04-17)
PROC: B2151ZZ Fluoroscopy of Left Heart using Low Osmolar Contrast (ICD-10-PCS; 2018-04-17)
PROC: 0DB68ZX Excision of Stomach, Via Natural or Artificial Opening Endoscopic, Diagnostic (ICD-10-PCS; 2018-04-18)
DX: R94.39 Abnormal result of other cardiovascular function study (principal); I50.32 Chronic diastolic (congestive) heart failure; I24.9 Acute ischemic heart disease, unspecified; R07.9 Chest pain, unspecified; D64.9 Anemia, unspecified; E11.9 Type 2 diabetes mellitus without complications; E78.5 Hyperlipidemia, unspecified; I11.0 Hypertensive heart disease with heart failure; I35.1 Nonrheumatic aortic (valve) insufficiency; Z87.891 Personal history of nicotine dependence; I25.10 Atherosclerotic heart disease of native coronary artery without angina pectoris; F32.9 Major depressive disorder, single episode, unspecified; K25.9 Gastric ulcer, unspecified as acute or chronic, without hemorrhage or perforation; K29.70 Gastritis, unspecified, without bleeding; K21.9 Gastro-esophageal reflux disease without esophagitis; F14.11 Cocaine abuse, in remission
CPT/HCPCS: 36415; 36416; 71045; 78452; 80048; 80053; 80061; 82274; 82553; 84484; 85025; 88305; 88312; 93005; 93010; 93017; 93306; 93458; 93798; 94760; 99152; A4216; A9500; C1769; G8978-GP-CI; G8979-GP-CI; G8980-GP-CI; G8987-GO-CH; G8988-GO-CH; G8989-GO-CH; J0153; J1644; J1650; J2001; J2250; S0028

== ENCOUNTER 2018-12-27 08:43 | Outpatient (CLI) | payer OTHER ==
--- NOTE | 2018-12-27 22:16 | MMO ---
Bilateral MAMMO Bilat Screen [facility]. CLINICAL HISTORY: Patient is 53 years old and is seen for screening. The patient has the following family history of breast cancer: mother, at age 58. The patient has no personal history of cancer. VIEWS: The views performed were: bilateral craniocaudal and bilateral mediolateral oblique. FILMS COMPARED: The present examination has been compared to a prior imaging study performed at [facility] on 01/05/2017. This study has been interpreted with the assistance of computer-aided detection. MAMMOGRAM FINDINGS: There are scattered fibroglandular densities. There are no suspicious masses, suspicious calcifications, or new areas of architectural distortion. IMPRESSION: THERE IS NO MAMMOGRAPHIC EVIDENCE OF MALIGNANCY. A ROUTINE FOLLOW-UP MAMMOGRAM IN 1 YEAR IS RECOMMENDED. ACR BI-RADS Category 1 - Negative MAMMOGRAPHY NOTE: 1. A negative mammogram report should not delay a biopsy if a dominant of clinically suspicious mass is present. 2. Approximately 10% to 15% of breast cancers are not detected by mammography. 3. Adenosis and dense breasts may obscure an underlying neoplasm.
== END 2018-12-27 08:44 | disposition home or self-care (01) ==
LOC: SCSMAMMO 08:43
PROVIDERS: ATTEND Family Medicine
DX: Z12.31 Encounter for screening mammogram for malignant neoplasm of breast (principal); Z80.3 Family history of malignant neoplasm of breast
CPT/HCPCS: 77067